=== PATIENT | female | born 1970 | race Caucasian/White ===

== ENCOUNTER → 2020-08-17 08:12 | Outpatient (BNVA) | payer SELFPAY | PROVIDERS: PCP Internal Medicine; Visit Provider Physician Assistant ==

== ENCOUNTER 2020-08-19 08:16 | Outpatient (REF) | payer OTHER, SELFPAY ==
[2020-08-19 09:00] LABS: MANUAL DIFF FLAG NO
[2020-08-19 09:05] LABS: Basophils Percent Auto 0.5 % (0-2); Eosinophils Absolute Auto 0.2 X10*3/uL (0.0-0.4); Eosinophils Percent Auto 2.7 % (0-4); Hematocrit 43.9 % (37-47); Hemoglobin 14.2 g/dl (12.0-16.0); Imm Gran Abs Auto 0.01 X10*3/uL (0.00-0.03); Imm Gran Pct Auto 0.2 % (0.0-0.4); Lymphocytes Absolute Auto 1.7 X10*3/uL (1.2-4.9); Lymphocytes Percent Auto 30.1 % (20-40); Mean Corpuscular HGB Conc 32.3 g/dl (31.0-35.0); Mean Corpuscular Hemoglobin 30.8 pg (27.0-33.0); Mean Corpuscular Volume 95.2 fL (80-98); Monocytes Absolute Auto 0.4 X10*3/uL (0.1-1.2); Monocytes Percent Auto 6.7 % (2-11); Neutrophils Absolute Auto 3.3 X10*3/uL (2.0-8.3); Neutrophils Percent Auto 59.8 % (45-73); Platelet Count 285 X10*3/uL (160-400); Red Blood Count 4.61 X10*6/uL (4.20-5.50); Red Cell Distribution Width 12.8 % (11.0-16.0); White Blood Count 5.5 X10*3/uL (4.8-10.8)
[2020-08-19 09:29] LABS: Alanine Aminotransferase 11 U/L (0-31); Alkaline Phosphatase 82 U/L (39-117); Anion Gap 11 (12-20); Aspartate Amino Transferase 15 U/L (5-31); Bilirubin Total 0.6 mg/dL (0.0-1.0); Blood Urea Nitrogen 20 mg/dL (9-16); C Reactive Protein 0.95 mg/dL (< or = 0.50); Calcium 9.4 mg/dL (8.4-10.2); Carbon Dioxide 27 mmol/L (22-29); Chloride 108 mmol/L (96-108); Cholesterol 192 mg/dL; Estimated Glomerular Filt Rate > 60; Glucose Fasting 90 mg/dL (60-99); HDL Cholesterol 54 mg/dL; Iron 87 mcg/dL (30-160); LDL Cholesterol Calculated 115 mg/dl; Percent Iron Saturation 33 % (15-50); Sodium 141 mmol/L (135-145); Total Iron Binding Capacity 266 mcg/dL (228-428); Total Protein 6.8 g/dL (6.5-8.0); Triglycerides 117 mg/dL; Unsaturated Iron Binding 179 ug/dL
[2020-08-19 09:30] LABS: Estimated Average Glucose 97 mg/dL
[2020-08-19 09:54] LABS: Ferritin 48 ng/mL (10-250); TSH reflex Free T4 0.31 mIU/mL (0.32-4.0); Vitamin D 25-OH Total 21.6 ng/mL (>30)
[2020-08-19 10:05] LABS: Folate 8.9 ng/mL (> or = 4.0); Vitamin B12 391 pg/mL (200-900)
[2020-08-19 10:31] LABS: Free T4 (Free Thyroxine) 1.19 ng/dL (0.71-1.85)
[2020-08-22 01:17] LABS: Zinc 85 mcg/dL (60-130)
[2020-08-22 08:42] LABS: Calcium (PTHI) 9.4 mg/dL (8.6-10.2); PTHI 48 pg/mL (14-64)
[2020-08-23 08:27] LABS: Vitamin B1 <6 nmol/L (8-30)
[2020-08-26 12:43] LABS: Vitamin A 41 mcg/dL (38-98)
== END 2020-08-19 08:17 | disposition home or self-care (01) ==
LOC: HO.LAB 08:16
PROVIDERS: Absent Provider Internal Medicine; PCP Internal Medicine; Visit Provider Physician Assistant
DX: E66.01 Morbid (severe) obesity due to excess calories (principal); K91.2 Postsurgical malabsorption, not elsewhere classified; Z90.3 Acquired absence of stomach [part of]; Z98.84 Bariatric surgery status
CPT/HCPCS: 36415; 80053; 80061; 82306; 82607; 82728; 82746; 83036; 83525; 83540; 83970; 84425; 84439; 84443; 84590; 84630; 85025; 86140

== ENCOUNTER → 2020-10-20 08:26 | Outpatient (BNVA) | payer OTHER, SELFPAY | PROVIDERS: PCP Internal Medicine; Visit Provider Dietitian, Registered ==

== ENCOUNTER 2020-11-05 08:03 | Outpatient (REF) | payer OTHER, SELFPAY ==
--- NOTE | ~2020-11-05 | XR_ITS ---
EXAMINATION: XR SHOULDER, LEFT CLINICAL INFORMATION: Pain in left shoulder COMPARISON: None TECHNIQUE: Three views of the left shoulder. FINDINGS: There is no fracture or dislocation. The glenohumeral joint is well aligned. The joint space is maintained. The acromioclavicular joint is intact. The visualized lung is clear. The visualized ribs are intact. XR/XR shoulder LT min 2V IMPRESSION: Normal left shoulder.
== END 2020-11-05 08:04 | disposition home or self-care (01) ==
LOC: HO.HOSX 08:03
PROVIDERS: Visit Provider Physician Assistant
DX: M25.512 Pain in left shoulder (principal)
CPT/HCPCS: 73030

== ENCOUNTER 2020-11-05 09:39 | Outpatient (REF) | payer OTHER, SELFPAY ==
[2020-11-05 11:16] LABS: Free T4 (Free Thyroxine) 1.04 ng/dL (0.71-1.85); Thyroid Stimulating Hormone 0.63 uIU/mL (0.32-4.0); Vitamin D 25-OH Total 16.4 ng/mL (>30)
== END 2020-11-05 09:40 | disposition home or self-care (01) ==
LOC: HO.LAB 09:39
PROVIDERS: PCP Family Medicine; Visit Provider Internal Medicine Endocrinology, Diabetes & Metabolism
DX: M75.42 Impingement syndrome of left shoulder (principal); E03.9 Hypothyroidism, unspecified
CPT/HCPCS: 20610; 36415; 82306; 84439; 84443; J1040

== ENCOUNTER → 2020-11-10 08:09 | Outpatient (BNVA) | payer OTHER, SELFPAY | PROVIDERS: PCP Internal Medicine; Visit Provider Internal Medicine Endocrinology, Diabetes & Metabolism ==

== ENCOUNTER → 2021-01-18 08:37 | Outpatient (BNVA) | payer OTHER, SELFPAY | PROVIDERS: PCP Internal Medicine; Visit Provider Orthopaedic Surgery ==

== ENCOUNTER 2021-02-02 10:51 | Outpatient (REF) | payer OTHER, SELFPAY ==
--- NOTE | ~2021-02-02 | US_ITS ---
EXAMINATION: US THYROID CLINICAL INFORMATION: Nontoxic single thyroid nodule. COMPARISON: Thyroid ultrasound 01/06/2017. TECHNIQUE: Linear transducer grayscale and color Doppler examination with attention to the region of the thyroid. FINDINGS: SIZE: Measurements of the thyroid lobes and nodules are given in sagittal, anteroposterior and transverse dimensions respectively. Right Thyroid Lobe: 3.4 x 1.3 x 0.8 cm, volume 1.8 mL. Previously 3.8 x 1.0 x 1.1 cm, volume 2.1 mL. Parenchyma: The gland echotexture is homogeneous. Thyroid vascularity is normal. Left Thyroid Lobe: 2.7 x 0.7 x 0.7 cm, volume 0.7 mL. Previously 2.4 x 0.9 x 1.0 cm, volume 1.1 mL. Parenchyma: The gland echotexture is homogeneous. Thyroid vascularity is normal. Isthmus: 0.3 cm in maximum AP dimension. Previously 0.3 cm. No focal thyroid nodule is seen. NODES: No lymphadenopathy is seen in the tissue surrounding the thyroid gland. US/US thyroid IMPRESSION: The thyroid gland is small. The questioned thyroid nodule in the inferior left lobe on 2017 exam is not appreciated. ACR TI-RADS RECOMMENDATION REFERENCE: Ultrasound-guided fine-needle aspiration, followup ultrasound, no further follow up. * TR1 (0 point) and TR 2 (2 points): No FNA or follow up * TR3 (3 points): FNA if more than or equal to 2.5 cm in maximum dimension, followup ultrasound in 1, 3 and 5 years if 1.5 to 2.4 cm in maximum dimension. * TR4 (4-6 points): FNA if more than or equal to 1.5 cm in maximum dimension, followup ultrasound in 1, 2, 3 and 5 years if 1 to 1.4 cm in maximum dimension. * TR5 (more than or equal to 7 points): FNA if more than or equal to 1 cm in maximum dimension, followup ultrasound every year for 5 years if 0.5 to 0.9 cm in maximum dimension. * TR3, TR4 or TR5 nodules that are below the size threshold for follow up receive no follow up.
== END 2021-02-02 10:52 | disposition home or self-care (01) ==
LOC: HO.US 10:51
PROVIDERS: Visit Provider Internal Medicine Endocrinology, Diabetes & Metabolism
DX: E04.1 Nontoxic single thyroid nodule (principal)
CPT/HCPCS: 76536

== ENCOUNTER → 2021-05-17 08:16 | Outpatient (BNVA) | payer OTHER, SELFPAY | PROVIDERS: Visit Provider Orthopaedic Surgery ==

== ENCOUNTER → 2021-06-03 07:54 | Outpatient (BNVA) | payer OTHER, SELFPAY | PROVIDERS: PCP Internal Medicine; Visit Provider Nurse Practitioner Gerontology ==

== ENCOUNTER → 2021-06-14 08:01 | Outpatient (BNVA) | payer OTHER, SELFPAY | PROVIDERS: PCP Family Medicine; Visit Provider Internal Medicine | DX: M67.919 Unspecified disorder of synovium and tendon, unspecified shoulder (principal); M75.102 Unspecified rotator cuff tear or rupture of left shoulder, not specified as traumatic; M75.42 Impingement syndrome of left shoulder | CPT/HCPCS: J3300 ==

== ENCOUNTER 2021-07-14 06:03 | Outpatient (REF) | payer OTHER, SELFPAY ==
--- NOTE | ~2021-07-14 | FL_ITS ---
EXAMINATION: XR FLUOROSCOPY WITH IMAGES CLINICAL INFORMATION: Unspecified disorder of synovium and tendon. COMPARISON: None. TECHNIQUE: Fluoroscopy performed by Dr. Lopez. Fluoroscopy time: 0.2 minutes DAP: 0.8 Gy-cm2 Images: 1 FINDINGS: Images demonstrate needle placement and contrast injection of the soft tissues over the right shoulder. FL/FL guidance in treatment room IMPRESSION: Fluoroscopy guidance for pain management procedure.
== END 2021-07-14 06:04 | disposition home or self-care (01) ==
LOC: HO.RADIR 06:03
PROVIDERS: Visit Provider Internal Medicine
DX: M67.919 Unspecified disorder of synovium and tendon, unspecified shoulder (principal); M75.102 Unspecified rotator cuff tear or rupture of left shoulder, not specified as traumatic; M75.42 Impingement syndrome of left shoulder
CPT/HCPCS: 64418; Q9967

== ENCOUNTER → 2021-08-09 08:50 | Outpatient (BNVA) | payer OTHER, SELFPAY | PROVIDERS: PCP Family Medicine; Visit Provider Internal Medicine ==

== ENCOUNTER 2021-10-27 08:50 | Day surgery (SDC) | payer OTHER, SELFPAY ==
--- NOTE | ~2021-10-27 | FL_ITS ---
EXAMINATION: XR FLUOROSCOPY WITH IMAGES CLINICAL INFORMATION: Left shoulder pain COMPARISON: July 14, 2021 TECHNIQUE: Fluoroscopy performed by Dr. Lopez. Fluoroscopy time: 0.3 minutes DAP: 0.526 Gycm2 Images: 2 FINDINGS: Needle is seen overlying the region just lateral to the coracoid process of the left shoulder FL/FL guidance in OR IMPRESSION: Fluoroscopy provided for pain management.
--- NOTE | 2021-10-27 10:31 | P.BOP_ITS ---
Brief Operative Note Date of Service: 10/27/21 Pre-op diagnosis: Left shoulder pain Post-op diagnosis: same Procedure: Temporary peripheral nerve stimulator lead placement Implants: [employer] PNS lead Surgeon: Tony Lopez MD Anesthesia: local Was an Vice President Of Product Marketing used for this Procedure?: No Estimated blood loss (mL): 1 Pathology: none sent Disposition: same day (home)
--- NOTE | 2021-10-27 10:31 | MHC.SHP ---
Pre-Procedural Eval Section A Date of Service: 10/27/21 The patient is an INPATIENT: No Changes since office visit: Yes Patient answered all questions The History & Physical has been completed within 30 days and I have reviewed it.: No Section B Chief Complaint: rotator cuff pain Allergies: Allergies Allergy/AdvReac Type Severity Reaction Status Date / Time No Known Allergies Allergy Verified 07/14/21 07:36 [No Known Allergies*] Plan Diagnosis/Plan: Unchanged I have reviewed the history and physical and performed a pertinent physical examination on my patient. No changes have occurred unless specified.
--- NOTE | 2021-10-27 10:31 | W.PM.OPN ---
Operative Note Operative Note Date of Service: 10/27/21 Narrative: Peripheral Nerve Stimulation Temporary Lead Placement, Fluoroscopy-Guided, Suprascapular Nerve, Left ? After the risks, benefits and alternatives were discussed with the patient and informed consent was obtained, patient was placed in the sitting position and padded to foster comfort. Appropriate skin and bony landmarks were identified using fluoroscopy, including the left suprascapular notch. The skin overlying the needle entry site was prepped and draped in sterile fashion. After identifying and marking the intended target along the course of the suprascapular nerve, the skin around the planned entry point and the subcutaneous tissues were injected with local anesthetic. An introducer needle and stimulating probe were assembled, inserted and advanced along the intended course of the suprascapular nerve, taking care to maintain the proper depth of insertion as the introducer was advanced under fluoroscopy guidance. Bony contact was achieved with the scapula and maintained throughout. The introducer needle was delivered to a location in proximity to the nerve. Multiple stimulation parameters were used to deliver stimulation to the suprascapular nerve in concert with stimulating at multiple positions around the nerve. Nerve target acquisition was confirmed noting generation of sensory and mild motor effects (paresthesia, muscle tension, etc) in the shoulder and proximal arm; corresponding to the distribution of the suprascapular nerve. Various electrical parameter combinations were tested, and the lead location was adjusted (physically relocated under image guidance) until the patient indicated shoulder paresthesia and tension overlapping the distribution of the patient?s typical region of pain. The stimulating probe was removed from the introducer and a percutaneous lead was guided through the needle and delivered to a location in similar proximity to the nerve. Final location was verified with electrical stimulation and documented. The introducer needle was removed, and the exposed end of the percutaneous lead was attached to an external stimulator unit. Various electrical parameter combinations were again tested until the patient indicated paresthesia and muscle tension overlapping the distribution of the patient?s typical region of pain. After confirming that lead impedance was in the normal range, the external unit was detached, the needle was removed, and the lead was anchored at the skin. The needle entry site was occluded with dermabond. The lead was threaded into the connector block and electrical continuity and desired patient response was confirmed. The connector block was attached to the external stimulator unit. The site was covered with a sterile occlusive dressing.? A final image was taken to document final placement. The patient was observed for stability of vital signs and comfort.
== END 2021-10-27 11:15 | disposition home or self-care (01) ==
PROVIDERS: PCP Family Medicine; Visit Provider Internal Medicine
PROC: (CPT 64555; principal; 2021-10-27 10:00)
DX: M25.512 Pain in left shoulder (principal)
CPT/HCPCS: 64555; C1778

== ENCOUNTER → 2021-11-05 09:22 | Outpatient (BNVA) | payer MEDICAID, SELFPAY | PROVIDERS: PCP Family Medicine; Visit Provider Internal Medicine | DX: M25.512 Pain in left shoulder (principal) | CPT/HCPCS: 99212 ==

== ENCOUNTER 2021-12-24 06:08 | Outpatient (REF) | payer MEDICAID, SELFPAY | END 2021-12-24 06:09 | disposition home or self-care (01) | LOC: HO.RADIR 06:08 | PROVIDERS: Visit Provider Internal Medicine | DX: M25.512 Pain in left shoulder (principal) | CPT/HCPCS: 99212 ==

== ENCOUNTER 2022-02-08 09:16 | Outpatient (REF) | payer MEDICAID, SELFPAY ==
[2022-02-08 11:06] LABS: Thyroid Stimulating Hormone 1.13 uIU/mL (0.32-4.0); Vitamin D 25-OH Total 16.2 ng/mL (>30)
== END 2022-02-08 09:17 | disposition home or self-care (01) ==
LOC: HO.LAB 09:16
PROVIDERS: Internal Medicine Endocrinology, Diabetes & Metabolism; PCP Family Medicine; Visit Provider Nurse Practitioner Gerontology
DX: E55.9 Vitamin D deficiency, unspecified (principal); E03.9 Hypothyroidism, unspecified
CPT/HCPCS: 36415; 82306; 84439; 84443

== ENCOUNTER → 2022-02-11 07:38 | Outpatient (BNVA) | payer MEDICAID, SELFPAY | PROVIDERS: PCP Family Medicine; Visit Provider Internal Medicine | DX: N92.6 Irregular menstruation, unspecified (principal); E03.9 Hypothyroidism, unspecified; E55.9 Vitamin D deficiency, unspecified; E66.9 Obesity, unspecified; Z68.39 Body mass index [BMI] 39.0-39.9, adult; Z79.899 Other long term (current) drug therapy | CPT/HCPCS: 99212 ==

== ENCOUNTER 2022-03-18 06:50 | Outpatient (REF) | payer MEDICAID, SELFPAY ==
[2022-03-18 07:28] LABS: Alanine Aminotransferase 15 U/L (0-31); Albumin Level 3.8 g/dL (3.5-5.0); Alkaline Phosphatase 72 U/L (39-117); Anion Gap 14 (12-20); Aspartate Amino Transferase 19 U/L (5-31); Bilirubin Total 0.5 mg/dL (0.0-1.0); Blood Urea Nitrogen 21 mg/dL (9-16); Calcium 9.4 mg/dL (8.4-10.2); Carbon Dioxide 29 mmol/L (22-29); Chloride 104 mmol/L (96-108); Cholesterol 202 mg/dL; Estimated Glomerular Filt Rate > 60; Glucose Random 98 mg/dL (60-115); HDL Cholesterol 57 mg/dL; LDL Cholesterol Calculated 115 mg/dl; Potassium 4.5 mmol/L (3.3-5.1); Sodium 142 mmol/L (135-145); Total Protein 6.7 g/dL (6.5-8.0); Triglycerides 154 mg/dL
[2022-03-18 07:34] LABS: HCG Quantitative 7 mIU/mL
[2022-03-18 07:38] LABS: Glucose Fasting 94 mg/dL (60-99)
[2022-03-18 08:43] LABS: Estimated Average Glucose 100 mg/dL; Hemoglobin A1c % 5.1 %
[2022-03-18 09:08] LABS: Glucose 1 Hour 121 mg/dL
[2022-03-18 10:08] LABS: Cortisol Random 12.1 ug/dL
[2022-03-18 10:28] LABS: Glucose 2 Hour 43 mg/dL
[2022-03-21 04:02] LABS: LDL Cholesterol Direct 111 mg/dL (<100)
[2022-03-21 04:52] LABS: DHEA Sulfate 19 mcg/dL (15-205)
[2022-03-21 11:47] LABS: Follicle Stimulating Hormone 95.5 mIU/mL; Prolactin 6.4 ng/mL
[2022-03-21 17:26] LABS: Sex Hormone Binding Globulin 47 nmol/L (17-124)
[2022-03-22 15:22] LABS: Adrenocorticotropic Hormone 35 pg/mL (6-50)
[2022-03-24 20:27] LABS: Testosterone, Free 0.7 pg/mL (0.1-6.4); Testosterone, Total 6 ng/dL (2-45)
[2022-03-30 17:41] LABS: Androstenedione 30 ng/dL
[2022-04-01 22:52] LABS: Estradiol Free 0.06 pg/mL; Estradiol, Ultrasensitive 4 pg/mL
== END 2022-03-18 06:51 | disposition home or self-care (01) ==
LOC: HO.LAB 06:50
PROVIDERS: PCP Family Medicine; Visit Provider Internal Medicine
DX: N92.6 Irregular menstruation, unspecified (principal)
CPT/HCPCS: 36415; 80053; 80061; 82024; 82157; 82533; 82627; 82670; 82681; 83001; 83002; 83036; 83498; 83721; 84146; 84270; 84402; 84403; 84702

== ENCOUNTER → 2022-04-07 08:33 | Outpatient (BNVA) | payer MEDICAID, SELFPAY | PROVIDERS: PCP Family Medicine; Visit Provider Dietitian, Registered | DX: E66.9 Obesity, unspecified (principal); Z68.39 Body mass index [BMI] 39.0-39.9, adult; Z98.84 Bariatric surgery status; Z71.3 Dietary counseling and surveillance | CPT/HCPCS: 97802 ==

== ENCOUNTER 2022-06-25 08:27 | Emergency (ER) | payer MEDICAID, SELFPAY ==
--- NOTE | ~2022-06-25 | US_ITS ---
EXAMINATION: US VENOUS ULTRASOUND WITH DOPPLER LOWER EXTREMITY, RIGHT CLINICAL INFORMATION: Right calf pain COMPARISON: None TECHNIQUE: Ultrasound of the deep veins is performed from the hip to the calf with compression sonography and color and pulse Doppler assessment. Spectral analysis with color-flow imaging is performed. FINDINGS: There is normal venous compression and respiratory variation and augmented flow. The visualized common femoral vein, superficial femoral vein, profunda femoral vein, popliteal vein, and the trifurcation region shows no evidence of deep venous thrombosis. There is no significant popliteal fossa cyst. If the patient's symptoms persist, followup ultrasound in 5 days 7 days might be of value to exclude proximal propagation from a non-visualized calf vein. US/US venous duplex LE RT IMPRESSION: No DVT demonstrated in the right lower extremity.
[2022-06-25 08:28] VITALS: BP 119/72; PULSE 99; RESP 18; TEMP 37.2; O2SAT 99; BMI 40.7
--- NOTE | 2022-06-25 08:40 | ED_ITS ---
HPI - General Adult General Chief complaint: Extremity Injury, Lower Stated complaint: r knee and leg pain Time Seen by Provider: 06/25/22 08:40 Source: patient Mode of arrival: ambulatory Limitations: no limitations History of Present Illness HPI narrative: Pt is a 52 yo assigned female at w/ hx of hypothyroidism presenting w/ a 5 day hx of left calf pain. She reports that the pain began spontaneously w/o any known inciting events. She states that the pain feels sharp and radiates up about half way up her posterior thigh. She states that putting pressure on the leg and ambulation make the pain worse. She reports trying Aleve, Bengay, and Voltaren gel w/o any provided relief of symptoms. She denies any associated fevers, chills, skin color changes, swelling, or changes in temperature to the affected leg. She denies SOB or chest pain. She denies any recent hx of injury or trauma to the leg. She denies hx of blood clots, estrogen therapy, or recent travel of any kind. She reports that she was diagnosed w/ COVID-19 approx 2 weeks ago. Onset (ago): day(s) (5) Location: lower extremity (right) Radiation: other (starts in calf, radiates half way up posterior thigh) Severity: mild Severity scale (1-10): 2 Quality: dull Pain Consistency: constant Relieving factors: none Exacerbating factors: movement Associated symptoms: denies other symptoms Treatments prior to arrival: none Related Data Previous Rx's Medication Instructions Recorded thiamine HCl (vitamin B1) 100 mg 100 mg PO DAILY 30 days #30 tabs 08/28/20 tablet levothyroxine 100 mcg tablet 100 mcg PO DAILY 90 days #90 tabs 06/03/21 cholecalciferol (vitamin D3) 125 125 mcg PO DAILY 90 days #90 caps 02/11/22 mcg (5,000 unit) capsule acarbose 25 mg tablet 25 mg PO TID 30 days #90 tabs 03/21/22 cyclobenzaprine 5 mg tablet 5 mg PO TID PRN leg pain 7 days 06/25/22 #21 tabs Allergies Allergy/AdvReac Type Severity Reaction Status Date / Time No Known Allergies Allergy Verified 04/19/22 08:30 [No Known Allergies*] Review of Systems Constitutional: Constitutional: Reports no additional constitutional complaints, Denies chills, Denies fever(s) and Denies night sweats Eyes: Eyes: Reports no additional eye complaints, Denies blurry vision, Denies change in vision, Denies diplopia, Denies eye discharge, Denies loss of vision and Denies eye pain ENT: Denies dizziness Cardiovascular: Cardiovascular: Reports no additional cardiovascular complaints, Denies chest pain, Denies lightheadedness, Denies Loss of Consciousness and Denies dyspnea Respiratory: Respiratory: Reports no additional respiratory complaints and Denies dyspnea Gastrointestinal: Gastrointestinal: Reports no additional gastrointestinal complaints, Denies abdominal pain, Denies melena, Denies hematochezia, Denies change in bowel habits and Denies change in stool character Genitourinary: Genitourinary: Denies hematuria, Denies urinary frequency, Denies dysuria, Denies urinary incontinence, Denies urinary hesitancy and Denies urinary urgency Musculoskeletal: Musculoskeletal: Reports no additional musculoskeletal complaints, Denies numbness and Denies tingling Comments: right lower leg pain Neurologic: Denies dizziness, Denies loss of vision, Denies numbness and Denies tingling Psychiatric: Psychiatric: Reports no additional psychiatric complaints Endocrine: Endocrine: Reports no additional endocrine complaints Hematologic/Lymphatic: Hematologic/Lymphatic: Reports no additional hematologic/lymphatic complaints Allergic/Immunologic: Allergic/Immunologic: Reports no additional allergic/immunologic complaints PMF Past Medical History Attestation statement: The following information was validated with the patient. Source: old records reviewed Medical History Anxiety Hypothyroidism Hypothyroidism Intestinal malabsorption following gastrectomy Irregular menses Obesity (BMI 30-39.9) Post menopausal syndrome Reactive hypoglycemia Vitamin D deficiency Surgical History Hx of cholecystectomy Hx of vaginal surgery S/P laparoscopic sleeve gastrectomy Status post arthroscopy of left knee Family History Family History Father Heart disease CVD (cardiovascular disease) Mother No problems noted. Brother Diabetes mellitus Brother Depressed Sister Pelvic cancer Thromboangiitis Bipolar 1 disorder Panic attack Heart problem Social History Social History Household Members: None Alcohol intake: current Alcohol intake frequency: holidays/special occasions only Patient Tobacco Use Status: Never used Tobacco Advance Directives: No Advance Directives Information Provided: No Current occupation: lft handed Physical Exam ED Vital Signs: Vital Signs - 24 hr 06/25/22 08:28 Temperature 99 F Pulse Rate 99 Respiratory Rate 18 Blood Pressure 119/72 Pulse Oximetry 99 Oxygen Delivery Method Room Air BMI result Body Mass Index 40.7 Const General: cooperative, no acute distress, alert and awake Nutritional Appearance: well nourished Orientation/consciousness: patient oriented x3 Limitations: no limitations HENMT Head: Yes normal to inspection and Yes atraumatic Ears: hearing grossly normal bilaterally and external ears normal General nose exam: Normal external nose present, no nasal discharge noted and no epistaxis Face and sinus: Yes normal facial exam, No abrasion and No laceration Mouth: Normal oral and palatal mucosa present, no drooling and no muffled voice Eyes General: appearance normal, both eyes and all related structures Periorbital: periorbital findings normal Eyelids: Yes eyelids normal Conjunctivae: conjunctivae normal Pupils: Equal, round and reactive pupils present EOM: EOMs intact bilaterally Neck Neck: Yes normal visual inspection, Yes full ROM and Yes no lymphadenopathy Chest Chest palpation & inspection: normal inspection of the chest Resp Effort & Inspection: normal respiratory effort and able to speak in complete sentences Auscultation: clear to auscultation bilaterally Cardio Rate: regular rate Rhythm: regular rhythm GI Inspection: Yes normal to inspection Neuro General: patient oriented x3 and moves all extremities Cranial nerves: Yes Equal, round and reactive pupils present Cognition (Neuro): normal cognition Motor exam (neuro): 5/5 motor strength present throughout Sensory Exam: Normal double simultaneous stimulation for sensation Coordination: [id number] test normal Extrem General: Yes normal to inspection, Yes full ROM and Yes capillary refill normal Psych Appearance: grossly normal Mental Status: mental status grossly normal Affect: normal affect Attitude: cooperative Thought process: Normal thought process present Thought content: Normal thought content present Insight: Good insight present (Psych) Medical Decision Making MDM Narrative Medical decision making narrative: Patient is a 52 year old assigned female at with a history of a recent COVID-19 infection presenting to the emergency department today with right lower leg pain. Patient's physical exam was unremarkable. Patient's right lower leg US showed no acute process. I explained my physical exam findings as well as all test results to the patient. I answered all questions asked by the patient. I stressed the importance of the patient taking her medication as prescribed. I stressed the importance of the patient following up with her primary care provider and her orthopedic provider as scheduled next week. I stressed the importance of the patient returning to the emergency department immediately if her symptoms were to worsen or if she were to develop any dizziness, shortness of breath, difficulty breathing, chest pain, blurry vision, loss of vision, nausea, vomiting, abdominal pain, fever, chills, back pain, or any other complaints. Patient verbalized agreement and understanding with this treatment plan and discharge. Imaging Data Venous US: Attestation: I personally reviewed and interpreted this imaging study as follows: My impression: No acute process. Radiologist's impression: EXAMINATION:? US VENOUS ULTRASOUND WITH DOPPLER LOWER EXTREMITY, RIGHT CLINICAL INFORMATION:? Right calf pain COMPARISON:? None TECHNIQUE: Ultrasound of the deep veins is performed from the hip to the calf with compression sonography and color and pulse Doppler assessment. Spectral analysis with color-flow imaging is performed. FINDINGS: There is normal venous compression and respiratory variation and augmented flow. The visualized common femoral vein, superficial femoral vein, profunda femoral vein, popliteal vein, and the trifurcation region shows no evidence of deep venous thrombosis. ? There is no significant popliteal fossa cyst. If the patient's symptoms persist, followup ultrasound in 5 days 7 days might be of value to exclude proximal propagation from a non-visualized calf vein. US/US venous duplex LE RT IMPRESSION: No DVT demonstrated in the right lower extremity. ? Dictated By: George Vaughan MD Signed By: Electronically signed by George Vaughan MD 06/25/22 0954 Discharge Plan Discharge Clinical Impression: Leg pain Patient Disposition: Home, Self-Care Instructions: Leg Pain (ED) Additional Instructions: Follow up with your primary care provider and your orthopedic provider as scheduled. Return to the emergency department immediately if your symptoms worsen or if you develop any dizziness, shortness of breath, difficulty breathing, chest pain, blurry vision, loss of vision, nausea, vomiting, abdominal pain, fever, chills, back pain, or any other complaints. Prescriptions: New cyclobenzaprine 5 mg tablet 5 mg PO TID PRN (Reason: leg pain) 7 Days Qty: 21 0RF No Action thiamine HCl (vitamin B1) 100 mg tablet 100 mg PO DAILY 30 Days Qty: 30 5RF cholecalciferol (vitamin D3) 125 mcg (5,000 unit) capsule 125 mcg PO DAILY 90 Days Qty: 90 11RF acarbose 25 mg tablet 25 mg PO TID 30 Days Qty: 90 6RF levothyroxine 100 mcg tablet 100 mcg PO DAILY 90 Days Qty: 90 11RF [place]: [facility] [place] Group] (Follow up with your orthopedic provider as scheduled. ) Saadia Masnfield MD [Primary Care Provider] - Stand Alone Forms: Work/School Release Print Language: Vietnamese
--- OUTSIDE RECORDS SUMMARY | 2022-06-25 09:02 | XMS_ITS | Continuity of Care Document ---
:1970 Author Organization [facility] Adult Address [address] [place] [address]- Care Team Providers Name Role Phone Ade Rouse MD Primary Care Physician Encounter [facility] [place] Date(s): 11/20/19 - 12/20/19 [facility] [address] [place] [id number] [facility] Attending Physician: Sami Del Rosario Admitting Physician: AdmtrSami Referring Physician: Admtr, ArCasie Allergies, Adverse Reactions, Alerts Substance Reaction Severity Status NKA Active Medications Colace sodium 100 mg oral capsule 100 mg, 1, capsule, By Mouth, 2 times a day, PRN, # 20 capsule, Refills 0, Tot. Refills 0, Maintenance, for constipation, 05/15/17 8:53:00, Print Requisition Start Date: 05/15/17 Status: OrderedDaily Multi 1 tablet, By Mouth, Daily, 0 Refills, Maintenance, 01/30/17 11:14:36 Start Date: 01/30/17 Status: Orderedfenofibrate 200 mg oral capsule 1 capsule = 200 mg, By Mouth, Daily, 0 Refills, Maintenance, 01/30/17 11:14:30 Start Date: 01/30/17 Status: OrderedSynthroid 0.1 mg oral tablet 1 tablet = 100 mcg, By Mouth, Daily, 0 Refills, Maintenance, 01/30/17 11:14:11 Start Date: 01/30/17 Status: Ordered Social History Social History Type Response Smoking Status Never smoker entered on: 01/30/17 Sex
--- OUTSIDE RECORDS SUMMARY | 2022-06-25 09:02 | XMS_ITS | Continuity of Care Document ---
:1970 Author Organization [facility] Address [address] [place] [address]- Care Team Providers Name Role Phone Nasim STORM, Ade Pineda Primary Care Physician Encounter [facility] [place] Date(s): 10/08/19 - 12/20/19 [facility] [address] [place] [address]- [facility] Attending Physician: Kellee Gaona MD Allergies, Adverse Reactions, Alerts Substance Reaction Severity [...]
[2022-06-25 10:32] VITALS: BP 95/54; PULSE 64; RESP 116; O2SAT 95
== END 2022-06-25 10:38 | disposition home or self-care (01) ==
PROVIDERS: Emergency Provider Emergency Medicine; PCP Family Medicine
DX: M79.605 Pain in left leg (principal); E66.9 Obesity, unspecified; Z68.41 Body mass index [BMI] 40.0-44.9, adult
CPT/HCPCS: 93971; 99283; 99284

== ENCOUNTER 2022-07-04 07:50 | Outpatient (REF) | payer MEDICAID, SELFPAY ==
--- NOTE | ~2022-07-04 | XR_ITS ---
EXAMINATION: AP BILATERAL KNEE STANDING. RIGHT KNEE. LEFT KNEE. CLINICAL INFORMATION: Pain bilateral knee. COMPARISON: None TECHNIQUE: AP bilateral knee standing. 2 views each knee. FINDINGS: AP bilateral knee: There is moderate reduction in medial compartment joint space both knees and mild reduction the lateral compartment joint space both knees. There is mild periapical spurring the medial and lateral compartment left knee. No bony erosive changes or loose body seen. Right knee: There is mild loss of patellofemoral compartment joint space with superior patellar spurring. No joint effusion or loose bodies. Left knee: There is moderate periarticular spurring left knee with superior and inferior patellar spurring. No abnormal joint effusion seen. No bony erosive changes. XR/XR knee LT 2V IMPRESSION: Degenerative arthritic changes in tricompartment of both knees with periarticular spurring. No visible acute fracture, dislocation or subluxation seen. There is no joint effusion seen in either knee.
--- NOTE | ~2022-07-04 | XR_ITS ---
EXAMINATION: AP BILATERAL KNEE STANDING. RIGHT KNEE. LEFT KNEE. CLINICAL INFORMATION: Pain bilateral knee. COMPARISON: None TECHNIQUE: AP bilateral knee standing. 2 views each knee. FINDINGS: AP bilateral knee: There is moderate reduction in medial compartment joint space both knees and mild reduction the lateral compartment joint space both knees. There is mild periapical spurring the medial and lateral compartment left knee. No bony erosive changes or loose body seen. Right knee: There is mild loss of patellofemoral compartment joint space with superior patellar spurring. No joint effusion or loose bodies. Left knee: There is moderate periarticular spurring left knee with superior and inferior patellar spurring. No abnormal joint effusion seen. No bony erosive changes. XR/XR knee RT 2V IMPRESSION: Degenerative arthritic changes in tricompartment of both knees with periarticular spurring. No visible acute fracture, dislocation or subluxation seen. There is no joint effusion seen in either knee.
--- NOTE | ~2022-07-04 | XR_ITS ---
EXAMINATION: AP BILATERAL KNEE STANDING. RIGHT KNEE. LEFT KNEE. CLINICAL INFORMATION: Pain bilateral knee. COMPARISON: None TECHNIQUE: AP bilateral knee standing. 2 views each knee. FINDINGS: AP bilateral knee: There is moderate reduction in medial compartment joint space both knees and mild reduction the lateral compartment joint space both knees. There is mild periapical spurring the medial and lateral compartment left knee. No bony erosive changes or loose body seen. Right knee: There is mild loss of patellofemoral compartment joint space with superior patellar spurring. No joint effusion or loose bodies. Left knee: There is moderate periarticular spurring left knee with superior and inferior patellar spurring. No abnormal joint effusion seen. No bony erosive changes. XR/XR knee standing BI IMPRESSION: Degenerative arthritic changes in tricompartment of both knees with periarticular spurring. No visible acute fracture, dislocation or subluxation seen. There is no joint effusion seen in either knee.
== END 2022-07-04 07:51 | disposition home or self-care (01) ==
LOC: HO.HOSX 07:50
PROVIDERS: Visit Provider Orthopaedic Surgery
DX: M17.0 Bilateral primary osteoarthritis of knee (principal)
CPT/HCPCS: 20610; 73560; 73565; 99212; J1100

== ENCOUNTER 2022-07-29 17:36 | Outpatient (REF) | payer MEDICAID, SELFPAY ==
--- NOTE | ~2022-07-29 | MR_ITS ---
EXAMINATION: MR KNEE WITHOUT CONTRAST, RIGHT CLINICAL INFORMATION: Effusion COMPARISON: X-ray 07/04/2022 TECHNIQUE: MRI of the knee without contrast was performed using routine sequences on a high-field scanner. FINDINGS: MENISCI: Medial Meniscus: Irregular tear of the posterior root and the central posterior horn involving a segment approximately 1.1 cm transverse. Partial extrusion of the body. Lateral Meniscus: Intact LIGAMENTS: Cruciate: Intact Collateral: Intact EXTENSOR MECHANISM: Intact ARTICULAR CARTILAGE/BONE: Patellofemoral Compartment: Extensive nonuniform cartilage loss, including high-grade/full-thickness cartilage loss in the mid/inferior patella, high-grade cartilage loss in the superior/lateral trochlear. Medial Compartment: Marginal osteophytes. Joint space loss. Cartilage thinning and irregularity in the weightbearing compartment. Subchondral tibial edema. Lateral Compartment: Marginal osteophytes. Cartilage heterogeneity in the central weightbearing compartment. JOINT FLUID AND BURSAE: Small effusion. 10 x 6 mm posterior loose body.. Moderate Mendez's cyst. MR/MR knee RT wo con IMPRESSION: 1. Tear of the posterior root and central posterior horn of the medial meniscus. 2. Moderate to severe patellofemoral, moderate medial, mild lateral compartment arthritis. 3. Small effusion. 10 x 6 mm posterior loose body. Moderate Mendez's cyst.
== END 2022-07-29 17:37 | disposition home or self-care (01) ==
LOC: HO.MRI 17:36
PROVIDERS: Visit Provider Orthopaedic Surgery
DX: M25.461 Effusion, right knee (principal)
CPT/HCPCS: 73721

== ENCOUNTER → 2022-08-22 08:47 | Outpatient (BNVA) | payer MEDICAID, SELFPAY | PROVIDERS: PCP Family Medicine; Visit Provider Internal Medicine | DX: M17.0 Bilateral primary osteoarthritis of knee (principal) | CPT/HCPCS: 99212 ==

== ENCOUNTER 2022-09-14 11:00 | Outpatient (RCR) | payer MEDICAID, SELFPAY ==
--- NOTE | 2022-08-22 12:11 | MHC.PT.EP ---
[facility] [place] Office [place] Office [place] Office [address] Cody Sebastian [address] [phone] F: [phone] F: [phone] F: [phone] F: [phone] Physical Therapy Plan of Care Date of Evaluation: Date of Surgery: Diagnosis: BILATERL KNEE OA Assessment: 52 YO FEMALE REF TO PT W PROGRESSIVE Rt KNEE PAIN W ONSET 06/19/22. RECENT MRI ON 08/04/22 REVEALED: IMPRESSION: 1. Tear of the posterior root and central posterior horn of the medial meniscus. 2. Moderate to severe patellofemoral, moderate medial, mild lateral compartment arthritis. 3. Small effusion. 10 x 6 mm posterior loose body. Moderate Mendez's cyst. 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 OBJECTIVE FINDINGS INCLUDE: LIMITED AROM Rt KNEE AND HIP, (+) SOFT TISSUE IRRITABILITY Rt PERIPATELLAR AREA W LATERAL RETINACULAR TIGHTNESS, (+) GENU VALGUS COLLAPSE, AND GENERAL LUMBOPELVIC/ PROX LE STRENGTH DEFICITS. FUNCTIONALLY, Pt HAS DIFFIC GETTING IN/OUT OF HER CAR, W STAIR NAVIGATION, PROLONGED STANDING, SQUATTING, AND DONNING HER SOCK. Pt WOULD BENEFIT FROM A TRIAL OF PT TO DEV A PROGRESSIVE HEP, EASE SOFT TISSUE TENSION AND MUSCULAR IMBALANCE, AND IMPROVE HER OVERALL FUNCT MOB BETHANIE- SHE IS WAITING AUTH FOR PAIN MGMT GEL INJECTIONS FOR HER KNEE. Frequency and Duration: The patient will be seen 2 x WK x 5 WKS Short Term Goals: *DECR Rt KNEE PAIN TO 2-3/10 *DEV A HEP *IMPROVE CALF AND PSOAS MM FLEXIBILITY Tooth Cutter Goals: *Pt DEMON EFFICIENT GAIT MECHANICS AND SIMUL ADLS *Pt INDEP W PROGRESSIVE HEP *IMPROVE ADL/ WORK BETHANIE- STAIR MGMT, EVIDENT W IMPROVED LEFI SCORE (AT EVAL 24/80) *BRYCE LEs STRENGTH IMPROVED BY 1/2 TO 1 GRADE Treatment Plan: Modalities to reduce pain, spasms and effusion. Manual therapy to restore motion and function. Therapeutic exercise to improve strength and flexibility. Neuromuscular re-education for posture and balance. Therapeutic activities to return to functional activities of daily living. Electronically signed by: CLAUDETTE PONCE PT Please sign and return to therapist. Thank you for your referral.
--- NOTE | 2022-10-21 07:11 | MHC.PT.DC ---
[facility] [place] Office [place] Office [place] Office [address] Cody Sebastian [address] [phone] F: [phone] F: [phone] F: [phone] F: [phone] Physical Therapy Discharge Report Diagnosis: BILATERL KNEE OA Date of Surgery: Date of Evaluation: 08/22/22 Date of Discharge: 10/21/22 Treatments to Date: 5 Cancellations to Date: 2 No Shows to Date: 0 Discharge Status: Improved Function Independent with HEP Patient Elected to Stop Discharge Summary: Pt was motivated for PT and she displayed improved functional mob and more efficient gait mechanics. The Pt has residual eccentric weakness right quad influencing function on stairs espec - She is indep w her HEP - a formal reassessment was not perf as Pt canc her last 2 sched PT appts- she noted her insurance approved her knee injections. Pt is d/c'd this date w her HEP. Electronically signed by: CLAUDETTE PONCEPT Please sign and return to therapist. Thank you for your referral.
== END 2022-10-21 07:12 | disposition home or self-care (01) ==
LOC: HO.PT 11:00
PROVIDERS: PCP Family Medicine; Visit Provider Orthopaedic Surgery
DX: M17.0 Bilateral primary osteoarthritis of knee (principal)
CPT/HCPCS: 97110; 97140; 97162; 97530

== ENCOUNTER → 2022-09-26 12:58 | Outpatient (BNVA) | payer MEDICAID, SELFPAY | PROVIDERS: PCP Family Medicine; Visit Provider Internal Medicine | DX: M17.0 Bilateral primary osteoarthritis of knee (principal) | CPT/HCPCS: 20611; J7318 ==

== ENCOUNTER 2022-11-22 08:51 | Outpatient (REF) | payer MEDICAID, SELFPAY ==
--- NOTE | ~2022-11-22 | CT_ITS ---
EXAMINATION: CT ABDOMEN AND PELVIS WITH CONTRAST CLINICAL INFORMATION: Abdominal pain COMPARISON: Previous abdominal ultrasound most recent June 2019 TECHNIQUE: Multidetector volumetric images were obtained from the superior aspect of the liver through the pubic symphysis following administration 85 mL of Omnipaque 350 intravenous contrast. Sagittal and coronal reformatted images were obtained on the technologist's workstation. Oral contrast: Yes This CT examination was performed using dose optimization techniques as appropriate, variously including the following: *Automated exposure control *Adjustment of mA and/or kV according to patient size (this includes techniques or standardized protocols for targeted exams where dose is matched to indication/reason for exam; i.e. extremities or head) *Use of iterative reconstruction technique DLP: 786 mGy-cm FINDINGS: LUNG BASES: 5 mm right lower lobe nodule axial image 2 series 8. 4 mm left lower lobe nodule axial image 10 series 8. There may be small bilateral hilar and mediastinal lymph nodes. LIVER, GALLBLADDER, AND BILIARY TREE: The liver is normal in size, shape, and attenuation. There is a 1 cm low-attenuation lesion high in the posterior segment of the right lobe of the liver axial image 16 series 3. This is difficult to characterize due to small size. Hounsfield units measure 17-25 uncertain whether this represents a complex cyst or solid lesion. The gallbladder is been removed. There is no biliary duct dilatation. PANCREAS: Unremarkable. SPLEEN: Unremarkable. ADRENAL GLANDS: Unremarkable. KIDNEYS AND URETERS: The kidneys are normal in size, shape, and attenuation. No hydronephrosis, hydroureter, or calculi seen. No perinephric stranding. BLADDER: Unremarkable. GASTROINTESTINAL TRACT: Stool throughout the colon questionable for mild constipation. The small and large bowel are unremarkable. The appendix is unremarkable. Postsurgical changes from gastric sleeve. ABDOMINAL WALL: No significant hernia is appreciated. LYMPH NODES: Normal. VASCULAR: Unremarkable. PELVIC VISCERA: Unremarkable. OSSEOUS STRUCTURES: Degenerative changes of the spine and hip joints.. CT/CT abdomen pelvis w IV con IMPRESSION: Question mild constipation. Postsurgical changes from gastric bypass. 1 cm liver lesion high in the posterior segment of the right lobe of the liver. This is difficult to characterize due to small size. This is not seen on prior ultrasound. This could be further evaluated with liver MRI if clinically indicated. Small pulmonary nodules. Follow-up chest CT recommended. Fleischner guidelines were followed.
[2022-11-22] MEDS: iohexoL 350 MG/ML 100 ML INFUS..BTL IV (11:26)
[2022-11-22] MEDS: Barium Sulfate Oral (Mocha) 450 ML ORAL.SUSP 900 ML PO (11:27)
[2022-11-22 12:48] LABS: Creatinine POC 0.6 mg/dL (0.5-1.4); GFR POC > 60
== END 2022-11-22 08:52 | disposition home or self-care (01) ==
LOC: HO.CT 08:51
PROVIDERS: PCP Family Medicine; Visit Provider Family Medicine
DX: R10.9 Unspecified abdominal pain (principal)
CPT/HCPCS: 74177; 82565; Q9967

== ENCOUNTER 2022-12-19 07:14 | Outpatient (REF) | payer OTHER, MEDICAID, SELFPAY ==
--- NOTE | ~2022-12-19 | US_ITS ---
EXAMINATION: US ABDOMEN COMPLETE CLINICAL INFORMATION: Liver cyst.. COMPARISON: CT abdomen and pelvis with contrast 11/22/2022. TECHNIQUE: Real-time imaging of the abdominal viscera. FINDINGS: PANCREAS: Normal. ABDOMINAL AORTA: The proximal, mid, and distal segments are normal in caliber. INFERIOR VENA CAVA: Visualized portions are normal. LIVER: The liver is normal in size. The liver contour is normal. Parenchymal echogenicity is normal. No focal hepatic lesion. There is no intrahepatic biliary duct dilatation seen. GALLBLADDER: Surgically absent. COMMON BILE DUCT: Normal in caliber measuring 0.4 cm in diameter. RIGHT KIDNEY: Normal. No hydronephrosis. No renal calculi or focal parenchymal lesions. The kidney measures 11.1 cm in maximum dimension. LEFT KIDNEY: Normal. No hydronephrosis. No renal calculi or focal parenchymal lesions. The kidney measures 10.8 cm in maximum dimension. SPLEEN: Normal. The spleen measures 9.5 cm in maximum dimension. FREE FLUID: None. US/US abdomen complete IMPRESSION: Previously seen liver lesion was not identified sonographically, and therefore not assessed. MR could be obtained for further evaluation.
== END 2022-12-19 07:15 | disposition home or self-care (01) ==
LOC: HO.US 07:14
PROVIDERS: PCP Family Medicine; Visit Provider Family Medicine
DX: K76.89 Other specified diseases of liver (principal)
CPT/HCPCS: 76700

== ENCOUNTER 2023-05-27 08:38 | Emergency (ER) | payer MEDICAID, SELFPAY ==
[2023-05-27 08:43] VITALS: BP 128/68; PULSE 87; RESP 16; TEMP 36.6; O2SAT 100; BMI 38.0
--- NOTE | 2023-05-27 09:02 | ED.BURNSMOKE ---
HPI - Burn/Smoke Inhalation General Chief complaint: Burn/Smoke Inhalation Stated complaint: facial burn Time Seen by Provider: 05/27/23 08:49 Source: patient and interpreter for the deaf Mode of arrival: ambulatory Limitations: language barrier History of Present Illness HPI Narrative: 53-year-old female here with complaints of shaw to face and left arm. Patient reports she was making her coffee and notice of the coffee machine was not dripping so she leaned over the top of it and the removed to the lid and steam and coffee/her face. She did flush her eyes prior to arrival. She is complaining of shaw to the left side of the face, the left arm and around the eyes with eye irritation. No vision changes. Related Data Previous Rx's Medication Instructions Recorded thiamine HCl (vitamin B1) 100 mg 100 mg PO DAILY 30 days #30 tabs 08/28/20 tablet cholecalciferol (vitamin D3) 125 125 mcg PO DAILY 90 days #90 caps 02/11/22 mcg (5,000 unit) capsule levothyroxine 100 mcg tablet 100 mcg PO DAILY 90 days #90 tabs 07/18/22 acetaminophen 325 mg tablet 650 mg (2 x 325 mg) PO Q4H PRN 05/27/23 (Tylenol) pain #30 tabs oxycodone 5 mg tablet 5 mg PO Q8H PRN pain #5 tabs 05/27/23 Allergies Allergy/AdvReac Type Severity Reaction Status Date / Time No Known Allergies Allergy Verified 09/26/22 13:07 [No Known Allergies*] Review of Systems Review of Systems: Yes all other systems are reviewed and are negative Constitutional: Constitutional: Reports no additional constitutional complaints, Denies body ache(s), Denies chills, Denies fever(s), Denies headache(s) and Denies weakness Eyes: Eyes: Reports no additional eye complaints and Denies change in vision ENT: Reports system reviewed and no additional complaints, except as documented, Denies dizziness, Denies headache(s), Denies nasal congestion, Denies nasal discharge and Denies neck pain Cardiovascular: Cardiovascular: Reports no additional cardiovascular complaints, Denies chest pain, Denies leg edema and Denies dyspnea Respiratory: Respiratory: Reports no additional respiratory complaints, Denies cough and Denies dyspnea Gastrointestinal: Gastrointestinal: Reports no additional gastrointestinal complaints, Denies abdominal pain, Denies diarrhea, Denies nausea and Denies vomiting Genitourinary: Genitourinary: Reports no additional female genitourinary complaints and Denies urinary incontinence Musculoskeletal: Musculoskeletal: Reports no additional musculoskeletal complaints, Denies back pain, Denies arthralgias, Denies joint swelling, Denies neck pain, Denies numbness and Denies tingling Integumentary/Breasts: Skin/Breast: Reports system reviewed and no additional complaints, except as docu and Denies rash Neurologic: Reports system reviewed and no additional complaints, except as documented, Denies Abnormal speech present, Denies dizziness, Denies headache(s), Denies numbness, Denies tingling and Denies weakness PMF Past Medical History Attestation statement: The following information was validated with the patient. Source: old records reviewed and nursing notes reviewed Medical History Reactive hypoglycemia Irregular menses Post menopausal syndrome Vitamin D deficiency Hypothyroidism Anxiety Hypothyroidism Obesity (BMI 30-39.9) Intestinal malabsorption following gastrectomy Surgical History S/P laparoscopic sleeve gastrectomy Hx of vaginal surgery Status post arthroscopy of left knee Hx of cholecystectomy Family History Family History Father Heart disease CVD (cardiovascular disease) Mother No problems noted. Brother Diabetes mellitus Brother Depressed Sister Pelvic cancer Thromboangiitis Bipolar 1 disorder Panic attack Heart problem Social History Social History Household Members: None Alcohol intake: current Alcohol intake frequency: holidays/special occasions only Patient Tobacco Use Status: Never used Tobacco Advance Directives: No Advance Directives Information Provided: Yes Current occupation: lft handed Physical Exam Vital Signs: Vital Signs: Last Vital Signs Temp 97.8 F 05/27/23 08:43 Pulse 87 05/27/23 08:43 Resp 16 05/27/23 08:43 BP 128/68 05/27/23 08:43 Pulse Ox 100 05/27/23 08:43 O2 Del Method Room Air 05/27/23 08:43 BMI result Body Mass Index 38.0 Const: General: cooperative, healthy appearing, comfortable and no acute distress Orientation/consciousness: patient oriented x3 Limitations: no limitations HEENT: Other: To the left cheek there are partial thickness shaw. There is periorbital erythema and conjunctival injection. Head: Yes normal to inspection Ears: hearing grossly normal bilaterally General nose exam: Normal external nose present Face and sinus: Yes normal facial exam Mouth: Normal oral and palatal mucosa present Throat: Yes posterior oropharynx normal Eyes: General: appearance normal, both eyes and all related structures Visual Askew: normal visual askew by confrontation Alignment and Position: alignment normal Pupils: Equal, round and reactive pupils present EOM: EOMs intact bilaterally Direct Ophthalmoscopy: normal light reflex Neck: Neck: Yes normal visual inspection Chest: Chest palpation & inspection: normal inspection of the chest Resp: Effort & Inspection: normal respiratory effort Auscultation: clear to auscultation bilaterally Cardio: Rate: regular rate Rhythm: regular rhythm Peripheral pulses: Peripheral pulses 2+ throughout GI: Inspection: Yes normal to inspection Palpation (GI): Soft to palpation and nontender Auscultation: normal bowel sounds Back/Spine/Pelvis: Thoracic/Lumbar Spine: thoracic and lumbar spine normal to inspection Skin: General skin exam: no rashes or lesions noted Neuro: General: patient oriented x3, no focal motor deficits and normal sensation to monofilament Cranial nerves: Yes Equal, round and reactive pupils present Cognition (Neuro): normal cognition Speech: No Abnormal speech present Gait exam (Neuro): Normal gait present Motor exam (neuro): 5/5 motor strength present throughout Extrem: Other: To the left upper extremity there are several small areas of partial-thickness shaw to the biceps and forearm General: Yes normal to inspection Course Course Course Narrative: Patient reports improvement in symptoms after her eyes were flashed and some topical tetracaine. She also received analgesia with improvement of symptoms. I will send her home with some pain medication and recommendations for supportive care. Reviewed worrisome signs and symptoms of when to return to the emergency room. Comfortable plan for discharge home Medications Administered Discontinued Medications Generic Name Dose Route Start Last Admin Trade Name Maxi PRN Reason Stop Dose Admin Ketorolac Tromethamine 30 mg 05/27/23 09:00 05/27/23 09:32 Ketorolac Tromethamine 30 Mg/Ml Vial IM 05/27/23 09:01 30 mg ONCE ONE Administration Tetracaine HCl 1 drop 05/27/23 09:00 05/27/23 09:32 Tetracaine Hcl/Pf 0.5% Oph Radha 4 Ml Drops EYE-BOTH 05/27/23 09:01 1 drop ONCE ONE Administration Medical Decision Making Medical Decision Making [facility] Narrative: 53-year-old female here with complaints of shaw to face and left arm.? Patient reports she was making her coffee and notice of the coffee machine was not dripping so she leaned over the top of it and the removed to the lid and steam and coffee/her face.? She did flush her eyes prior to arrival.? She is complaining of shaw to the left side of the face, the left arm and around the eyes with eye irritation.? No vision changes. To the left cheek there are partial thickness shaw.? There is periorbital erythema and conjunctival injection To the left upper extremity there are several small areas of partial-thickness shaw to the biceps and forearm. Eye exam is normal. Oropharynx is normal. Lungs are clear. Vitals are stable. Will provide tetracaine and eye flushing. Will provide analgesia. Differential Diagnosis Differential Diagnoses: The differential diagnosis associated with the presentation includes Partial thickness, superficial shaw Prescription Management I considered prescription management with: Antibiotic Discharge Plan Discharge Clinical Impression: Superficial partial thickness burn of face Patient Disposition: Home, Self-Care Instructions: Superficial Burn (ED), Second Degree Burn (ED) Additional Instructions: Cool compresses Topical bacitracin or neosporin Prescriptions: New oxycodone 5 mg tablet 5 mg PO Q8H PRN (Reason: pain) Qty: 5 0RF Rx Instructions: Partial Fill upon patient request. acetaminophen [Tylenol] 325 mg tablet 650 mg PO Q4H PRN (Reason: pain) Qty: 30 0RF No Action thiamine HCl (vitamin B1) 100 mg tablet 100 mg PO DAILY 30 Days Qty: 30 5RF cholecalciferol (vitamin D3) 125 mcg (5,000 unit) capsule 125 mcg PO DAILY 90 Days Qty: 90 11RF levothyroxine 100 mcg tablet 100 mcg PO DAILY 90 Days Qty: 90 11RF Referrals: Saadia Mansfield MD [Primary Care Provider] - 10 days
[2023-05-27] MEDS: Ketorolac Tromethamine 30 MG/ML VIAL IM (09:32)
[2023-05-27] MEDS: Tetracaine HCl/PF 0.5% Oph Sol 4 ML DROPS 1 DROP EYE-BOTH (09:32)
--- NOTE | 2023-05-27 10:11 | PC.NURSE ---
pt jesús to eye wash station for removal of debris. cold compresses for comfort.
== END 2023-05-27 10:22 | disposition home or self-care (01) ==
PROVIDERS: Emergency Provider Student in an Organized Health Care Education/Training Program; PCP Family Medicine
DX: T20.26XA Burn of second degree of forehead and cheek, initial encounter (principal); T22.212A Burn of second degree of left forearm, initial encounter; T22.232A Burn of second degree of left upper arm, initial encounter; X10.0XXA Contact with hot drinks, initial encounter; Y93.G9 Activity, other involving cooking and grilling; Y92.030 Kitchen in apartment as the place of occurrence of the external cause; Y99.9 Unspecified external cause status
CPT/HCPCS: 96372; 99283; 99284; J1885

== ENCOUNTER 2023-06-19 15:09 | Outpatient (REF) | payer OTHER, MEDICAID, SELFPAY ==
--- NOTE | ~2023-06-19 | MR_ITS ---
EXAMINATION: MRI ABDOMEN WITH AND WITHOUT CONTRAST CLINICAL INFORMATION: Liver lesion see on imaging COMPARISON: 11/[address] scan and 12/19/2022 ultrasound TECHNIQUE: Multiple routine MRI sequences through the abdomen were obtained on a high-field 1.5Tesla MRI. Pre-and postcontrast images with 10 mL of Gadavist intravenous contrast were obtained. This included a dynamic contrast-enhanced technique. FINDINGS: Lung bases: The visualized lung bases are unremarkable. Liver: The liver is normal in size, shape, and signal. Along the posterior segment 7 of the liver there is a subcapsular well demarcated homogeneously T2 bright 1 cm peripheral nodular enhancing hemangioma corresponding with the abnormality seen on recent CT scan. No suspicious focal hepatic lesions seen. Specifically no suspicious arterial phase enhancing lesions or suspicious washout of contrast on later phases. No biliary ductal dilatation. Gallbladder: Surgically absent Pancreas: Pancreas is homogeneous in signal. No pancreatic ductal dilatation or obstruction. No peripancreatic inflammatory changes or fluid. Spleen: Unremarkable Adrenals: Unremarkable Kidneys: Kidneys are normal in size, shape, and signal. No suspicious renal mass lesion seen. No hydronephrosis or perinephric edema. Other: Postoperative changes from prior gastric sleeve surgery noted. MR/MR abdomen wo/w con IMPRESSION: 1 cm subcapsular hemangioma in the posterior segment 7 of the liver corresponding with the abnormality seen on recent CT scan. No suspicious hepatic lesions seen.
[2023-06-19] MEDS: gadobutroL 10 ML VIAL IVPUSH (16:07)
== END 2023-06-19 15:10 | disposition home or self-care (01) ==
LOC: HO.MRI 15:09
PROVIDERS: PCP Family Medicine; Visit Provider Family Medicine
DX: K76.89 Other specified diseases of liver (principal)
CPT/HCPCS: 74183; A9585

== ENCOUNTER 2023-07-19 10:26 | Outpatient (REF) | payer OTHER, MEDICAID, SELFPAY ==
--- NOTE | ~2023-07-19 | XR_ITS ---
EXAMINATION: XR FOOT, LEFT CLINICAL INFORMATION: Pain. COMPARISON: None available. TECHNIQUE: AP, lateral, and oblique views of the left foot. FINDINGS: Bony alignment and mineralization are normal. No fracture, dislocation or left ankle joint effusion is seen. Boehler's angle is normal. There are small posterior and large plantar calcaneal spurs. No abnormal bony erosive change is seen. No focal soft tissue swelling, gas or foreign body is seen. XR/XR foot LT 2V IMPRESSION: 1. No fracture, dislocation or left ankle joint effusion is seen. 2. There are calcaneal spurs.
== END 2023-07-19 10:27 | disposition home or self-care (01) ==
LOC: HO.HOSX 10:26
PROVIDERS: PCP Family Medicine; Visit Provider Physical Medicine & Rehabilitation
DX: M79.672 Pain in left foot (principal); M76.72 Peroneal tendinitis, left leg
CPT/HCPCS: 73620

== ENCOUNTER 2023-07-19 10:26 | Outpatient (AMB) | payer OTHER, MEDICAID, SELFPAY ==
[2023-07-19 10:35] VITALS: BMI 34.7
--- NOTE | 2023-07-19 10:35 | A.OFFVIS_ITS ---
Intake Vital Signs 07/19/23 10:35 Height 5 ft 3 in Weight 196 lb BMI 34.7 Intake Visit Reasons: New Prob- Left foot pain Intake Note: Parlu 53 yr old female presents today for her new problem visit for her left foot pain. States pain is mainly on her lateral aspect of foot. States she tripped and twisted her foot about 4 months ago. Denies numbness or tingling inn foot or toes. States her increase when walking. Allergies No Known Allergies [No Known Allergies*] Allergy (Verified 07/19/23 10:39) Medication List - Last Reconciled 07/19/23 by Kanchan Nunez MD acetaminophen (Tylenol) 650 mg (2 x 325 mg) PO Q4H PRN cholecalciferol (vitamin D3) 125 mcg PO DAILY 90 days estradiol (Lyllana) 1 patch topical 2XW levothyroxine 100 mcg PO DAILY 90 days omeprazole 20 mg PO DAILY thiamine HCl (vitamin B1) 100 mg PO DAILY 30 days HPI HPI Comments History of Present Illness Details Points to left lateral foot. 4 months only. Twisted and fell on her foot. It swelled on left lateral ankle. No PT. No brace. No numbness or burning. No foot drop. Full ROM. Congenital below elbow amputation. [facility] Medical History Reactive hypoglycemia Irregular menses Post menopausal syndrome Vitamin D deficiency Hypothyroidism Anxiety Hypothyroidism Obesity (BMI 30-39.9) Intestinal malabsorption following gastrectomy Surgical History S/P laparoscopic sleeve gastrectomy Hx of vaginal surgery Status post arthroscopy of left knee Hx of cholecystectomy Family History Father Heart disease CVD (cardiovascular disease) Mother No problems noted. Brother Diabetes mellitus Brother Depressed Sister Pelvic cancer Thromboangiitis Bipolar 1 disorder Panic attack Heart problem Social History (Updated 07/19/23 @ 10:40 by ILIANA Elena) Household Members: None Alcohol intake: current Alcohol intake frequency: holidays/special occasions only Patient Tobacco Use Status: Never used Tobacco Current occupational status: employed Current occupation: lft handed/ direct care/mental health Review of Systems Const All systems reviewed & are unremarkable except as noted in HPI and below Physical Exam Vital Signs: BMI result Body Mass Index 34.7 Constitutional: Patient appears to be in no acute distress, well nourished and well developed. MSK: Tender left lateral foot - base of left 5th metatarsal. without signs of inflammatin, no redness, swelling or warmth. No tenderness over malleoli, plantar fascia or achilles. No foot drop. No EHL weakness. Neurological: Neurologic examination of the upper and lower extremities was nonfocal with intact sensation, muscle stretch reflexes and without focal motor deficits . Vargas?s negative bilaterally. Babinski was down going bilaterally. Clonus was negative. Gait is non-antalgic without loss of balance. Results Reviewed Results Reviewed: I independently reviewed the results of the following: See below I reviewed records from the following: Ortho Pain management Assessment & Plan Assessment & Plan (1) Foot pain, left: Code(s): M79.672 - Pain in left foot (2) Peroneal tendinitis, left leg: Code(s): M76.72 - Peroneal tendinitis, left leg Plan She rolled over left foot 4 months ago. Continues to have pain but tenderness is only around base of left metatarsal. No pain on malleoli or surrounding soft tissues. Will send for xray today. Most likely will put on a boot and refer to PT. We reviewed xray together. No fracture seen. Calcification on peroneal tendon as it attaches to 5th metatarsal, most likely sesamoid bone, most likely incidental. Will still put on boot for comfort. Referring to PT. Assessment and plan discussed with patient, and patient was agreeable. All questions were answered thoroughly. Follow-up 4-6 weeks. Kanchan Nunez MD, MARGY Board Certified, [place] Board [employer] and Rehabilitation (ABPMR) Board Certified, [place] Board of Electrodiagnostic Medicine (ABEM) Orders: Orders XR foot LT 2V Today M79.672 - Pain in left foot Coding Level of Care Code New Pt Level 4 (19790) Diagnoses Foot pain, left M79.672 Peroneal tendinitis, left leg M76.72
== END 2023-07-19 11:38 | disposition home or self-care (01) ==
PROVIDERS: PCP Family Medicine; Visit Provider Physical Medicine & Rehabilitation
DX: M79.672 Pain in left foot (principal); M76.72 Peroneal tendinitis, left leg
CPT/HCPCS: 99204

== ENCOUNTER 2023-08-02 09:36 | Outpatient (REF) | payer OTHER, MEDICAID, SELFPAY ==
--- NOTE | ~2023-08-02 | CT_ITS ---
EXAMINATION: CT CHEST WITH CONTRAST CLINICAL INFORMATION: Follow-up right basilar lung nodules. COMPARISON: CT abdomen and pelvis dated 11/30/2022. TECHNIQUE: Multidetector volumetric CT imaging of the chest was obtained after the administration of 50 mL of Omnipaque 350 intravenous contrast without immediate adverse reactions. Axial MIP volume rendering provided. Sagittal and coronal reformatted images were obtained. This CT examination was performed using dose optimization techniques as appropriate, variously including the following: *Automated exposure control *Adjustment of mA and/or kV according to patient size (this includes techniques or standardized protocols for targeted exams where dose is matched to indication/reason for exam; i.e. extremities or head) *Use of iterative reconstruction technique DLP: 149 mGy-cm FINDINGS: PLASTIC PARTS DESIGNER: The lungs are symmetrically well-expanded and grossly clear. LUNGS: Abutting the accessory fissure (7:76 and 6:87), a 4 mm benign pleural-based lymph node is seen. Within the lateral segment of the right middle lobe anteriorly (7:88), a 4 mm mildly spiculated nodule is seen. Abutting the right major fissure laterally (7:87), a 3 mm benign pleural-based lymph node is seen. Within the lateral basal segment of the right lower lobe (7:99), a 6 mm ovoid noncalcified nodule is seen. Within the posterior basal segment of the right lower lobe (7:15 and 122), 3 mm noncalcified parenchymal and benign pleural-based nodules are seen. At the lateral left apex (7:23), a 4 mm noncalcified subpleural nodule is seen. There are a few further tiny 1 mm calcified and noncalcified left upper lobe nodules, best appreciated on the MIP sequence. There are several benign pleural-based lymph nodes applied to the left major fissure, the largest inferiorly towards the lingula measuring 4 (7:112). There are numerous parenchymal and pleural-based nodules seen within the lateral basal segment of the left lower lobe, the largest parenchymal nodule measuring 5 mm (7:123). There is no mass, infiltrate or groundglass opacity. No generalized increase is seen in peripheral interlobular septal markings. No significant bleb or bullous formation is seen. There is no generalized small airway thickening. The central airways appear patent. MEDIASTINUM: The thyroid is unremarkable. There are numerous mediastinal lymph nodes, among the largest a right paratracheal lymph node with short axis diameter 1.4 cm, para-aortic lymph nodes with short axis diameters of 1.0 cm and 1.2 cm, a precarinal lymph node with short axis diameter of 8 mm, and a subcarinal lymph node with short axis diameter of 1.2 cm (3:14, 17, 18 and 20). There are are enlarged right hilar lymph nodes, the largest measuring 1.0 cm and 0.9 cm (3:20). There are enlarged left hilar lymph nodes, the largest showing a short axis diameter of 1.3 cm (3:25). PLEURA: There is no pleural effusion. No pleural mass or thickening. AXILLA: No lymphadenopathy. UPPER ABDOMEN: There is hepatic steatosis. The adrenal glands are unremarkable. Gastroesophageal surgical kyleigh are noted. OSSEOUS STRUCTURES: There is multi-level thoracic spondylosis. No acute or aggressive osseous finding is noted. CT/CT chest w IV con IMPRESSION: 1. Multiple bilateral calcified and noncalcified pulmonary nodules are seen, the largest within the lateral right base measuring 6 mm. According to the UPDATED 2017 Fleischner Society recommendations, the advised follow-up imaging for multiple solid nodules, the largest measuring 6 mm or greater, is: LOW RISK PATIENT: CT at 3-6 months, then consider CT at 18-24 months. HIGH RISK PATIENT: CT at 3-6 months, then at 18-24 months. 2. No mass, infiltrate or groundglass opacity is seen. 3. There are nonspecific enlarged mediastinal and bilateral hilar lymph nodes, for which continued attention on imaging follow-up is recommended. 4. There is no pleural effusion. 5. There are degenerative changes of the thoracic spine. No acute or aggressive osseous finding is noted. 6. There are degenerative changes of the thoracic spine. 7. There is hepatic steatosis. Fleischner guidelines were followed.
== END 2023-08-02 09:37 | disposition home or self-care (01) ==
LOC: HO.CT 09:36
PROVIDERS: PCP Family Medicine; Visit Provider Family Medicine
DX: R91.1 Solitary pulmonary nodule (principal)
CPT/HCPCS: 71260; 82565; Q9967

== ENCOUNTER → 2023-09-05 09:22 | Outpatient (REF) | payer OTHER, MEDICAID, SELFPAY ==
--- NOTE | 2023-09-05 | ECG_ITS ---
Test Reason : pre op Blood Pressure : / mmHG Vent. Rate : 060 BPM Atrial Rate : 060 BPM P-R Int : 184 ms QRS Dur : 108 ms QT Int : 410 ms P-R-T Axes : 037 -10 038 degrees QTc Int : 410 ms Normal sinus rhythm Incomplete right bundle branch block Borderline ECG No significant changes when compared with the previous EKG of 01 jul 2019 Referred By: Saadia Mansfield Electronically Signed By:BETTY GOODE
== END ==
LOC: HO.CARD 09:22
PROVIDERS: PCP Family Medicine; Visit Provider Family Medicine
DX: Z01.818 Encounter for other preprocedural examination (principal)
CPT/HCPCS: 93005

== ENCOUNTER → 2023-09-05 09:39 | Outpatient (BNV) | payer OTHER, MEDICAID, SELFPAY | PROVIDERS: PCP Family Medicine; Visit Provider Internal Medicine | DX: Z01.810 Encounter for preprocedural cardiovascular examination (principal) | CPT/HCPCS: 93010 ==

== ENCOUNTER 2024-03-06 06:25 | Outpatient (REF) | payer BC, MEDICAID, SELFPAY ==
[2024-03-06 06:37] LABS: MANUAL DIFF FLAG NO
[2024-03-06 07:12] LABS: Basophils Absolute Auto 0.1 X10*3/uL (0.0-0.2); Basophils Percent Auto 1.3 % (0-2); Eosinophils Absolute Auto 0.2 X10*3/uL (0.0-0.4); Eosinophils Percent Auto 4.4 % (0-4); Hematocrit 42.3 % (37.0-47.0); Hemoglobin 14.2 g/dl (12.0-16.0); Imm Gran Abs Auto 0.01 X10*3/uL (0.00-0.03); Imm Gran Pct Auto 0.3 % (0.0-0.4); Lymphocytes Percent Auto 26.6 % (20-40); Mean Corpuscular HGB Conc 33.6 g/dl (31.0-35.0); Mean Corpuscular Hemoglobin 31.1 pg (27.0-33.0); Mean Corpuscular Volume 92.6 fL (80.0-98.0); Mean Platelet Volume 12.3 fL (9.4-12.3); Monocytes Absolute Auto 0.3 X10*3/uL (0.1-1.2); Monocytes Percent Auto 8.4 % (2-11); Neutrophils Absolute Auto 2.3 x10*3/uL (2.0-8.3); Platelet Count 261 X10*3/uL (160-400); Red Blood Count 4.57 X10*6/uL (4.20-5.50); Red Cell Distribution Width 13.8 % (11.0-16.0); White Blood Count 3.8 X10*3/uL (4.8-10.8)
[2024-03-06 07:45] LABS: Alanine Aminotransferase 11 U/L (0-31); Albumin Level 3.7 g/dL (3.5-5.0); Alkaline Phosphatase 70 U/L (39-117); Anion Gap 9 (12-20); Aspartate Amino Transferase 18 U/L (5-31); Bilirubin Total 0.6 mg/dL (0.0-1.0); Blood Urea Nitrogen 16 mg/dL (9-16); Calcium 9.7 mg/dL (8.4-10.2); Carbon Dioxide 27 mmol/L (22-29); Chloride 110 mmol/L (96-108); Cholesterol 167 mg/dL (<200); Estimated Glomerular Filt Rate > 60; Glucose Random 86 mg/dL (60-115); HDL Cholesterol 52 mg/dL (>40); Iron 105 mcg/dL (30-160); LDL Cholesterol Calculated 93 mg/dL (<100); Percent Iron Saturation 50 % (15-50); Potassium 3.6 mmol/L (3.3-5.1); Sodium 142 mmol/L (135-145); Total Iron Binding Capacity 211 mcg/dL (228-428); Total Protein 6.5 g/dL (6.5-8.0); Triglycerides 114 mg/dL (<150); Unsaturated Iron Binding 106 ug/dL
[2024-03-06 08:01] LABS: HIV AB/AG Nonreactive (Nonreactive); HIV Num 1 0.06 S/CO (0.00-0.99); ~HepC Num1 0.43 S/CO (0.00-0.79); ~Hepatitis C Antibody Nonreactive (Nonreactive)
[2024-03-06 08:02] LABS: Ferritin 42 ng/mL (10-250)
== END 2024-03-06 06:26 | disposition home or self-care (01) ==
LOC: HO.LAB 06:25
PROVIDERS: PCP Family Medicine; Visit Provider Family Medicine
DX: E03.9 Hypothyroidism, unspecified (principal); E66.09 Other obesity due to excess calories; R79.89 Other specified abnormal findings of blood chemistry; Z13.9 Encounter for screening, unspecified; Z68.35 Body mass index [BMI] 35.0-35.9, adult
CPT/HCPCS: 36415; 80053; 80061; 82728; 83540; 84443; 85025; 86803; 87389

== ENCOUNTER → 2024-04-02 07:27 | Outpatient (REF) | payer BC, MEDICAID, SELFPAY ==
--- NOTE | 2024-04-02 07:33 | ECG_ITS ---
Test Reason : pre op Blood Pressure : / mmHG Vent. Rate : 072 BPM Atrial Rate : 072 BPM P-R Int : 162 ms QRS Dur : 096 ms QT Int : 392 ms P-R-T Axes : 064 -13 055 degrees QTc Int : 429 ms Normal sinus rhythm Incomplete right bundle branch block Borderline ECG When compared with ECG of 05-SEP-2023 09:39, No significant change was found Referred By: Saadia Mansfield Electronically Signed By:MIRELA SERRA
== END ==
LOC: HO.CARD 07:27
PROVIDERS: PCP Family Medicine; Visit Provider Family Medicine
DX: Z01.818 Encounter for other preprocedural examination (principal)
CPT/HCPCS: 93005

== ENCOUNTER 2024-04-12 10:18 | Outpatient (REF) | payer BC, MEDICAID, SELFPAY ==
[2024-04-12 10:32] LABS: MANUAL DIFF FLAG NO
[2024-04-12 11:09] LABS: Alanine Aminotransferase 10 U/L (0-31); Albumin Level 3.5 g/dL (3.5-5.0); Alkaline Phosphatase 61 U/L (39-117); Anion Gap 8 (12-20); Aspartate Amino Transferase 17 U/L (5-31); Bilirubin Total 0.4 mg/dL (0.0-1.0); Blood Urea Nitrogen 16 mg/dL (9-16); Calcium 9.2 mg/dL (8.4-10.2); Carbon Dioxide 30 mmol/L (22-29); Chloride 111 mmol/L (96-108); Estimated Glomerular Filt Rate > 60; Glucose Random 90 mg/dL (60-115); Sodium 145 mmol/L (135-145)
[2024-04-12 11:22] LABS: Basophils Absolute Auto 0.1 X10*3/uL (0.0-0.2); Basophils Percent Auto 1.2 % (0-2); Eosinophils Absolute Auto 0.2 X10*3/uL (0.0-0.4); Eosinophils Percent Auto 3.9 % (0-4); Hematocrit 40.5 % (37.0-47.0); Hemoglobin 13.2 g/dl (12.0-16.0); Imm Gran Abs Auto 0.01 X10*3/uL (0.00-0.03); Imm Gran Pct Auto 0.2 % (0.0-0.4); Lymphocytes Absolute Auto 1.2 X10*3/uL (1.2-4.9); Lymphocytes Percent Auto 27.9 % (20-40); Mean Corpuscular HGB Conc 32.6 g/dl (31.0-35.0); Mean Corpuscular Hemoglobin 31.2 pg (27.0-33.0); Mean Corpuscular Volume 95.7 fL (80.0-98.0); Mean Platelet Volume 12.4 fL (9.4-12.3); Monocytes Absolute Auto 0.3 X10*3/uL (0.1-1.2); Monocytes Percent Auto 7.8 % (2-11); Neutrophils Absolute Auto 2.6 x10*3/uL (2.0-8.3); Platelet Count 246 X10*3/uL (160-400); Red Blood Count 4.23 X10*6/uL (4.20-5.50); Red Cell Distribution Width 14.2 % (11.0-16.0); White Blood Count 4.3 X10*3/uL (4.8-10.8)
== END 2024-04-12 10:19 | disposition home or self-care (01) ==
LOC: HO.LAB 10:18
PROVIDERS: PCP Student in an Organized Health Care Education/Training Program; Visit Provider Student in an Organized Health Care Education/Training Program
DX: Z01.810 Encounter for preprocedural cardiovascular examination (principal)
CPT/HCPCS: 36415; 80053; 85025

== ENCOUNTER 2024-07-26 10:11 | Outpatient (REF) | payer BC, MEDICAID, SELFPAY ==
--- NOTE | ~2024-07-26 | CT_ITS ---
EXAMINATION: CT CHEST WITHOUT CONTRAST CLINICAL INFORMATION: Pulmonary nodule. COMPARISON: CT chest dated 08/02/2023. TECHNIQUE: Multidetector volumetric CT imaging of the chest was done. Axial MIP volume rendering provided. Sagittal and coronal reformatted images were obtained. This CT examination was performed using dose optimization techniques as appropriate, variously including the following: *Automated exposure control *Adjustment of mA and/or kV according to patient size (this includes techniques or standardized protocols for targeted exams where dose is matched to indication/reason for exam; i.e. extremities or head) *Use of iterative reconstruction technique DLP: 123 mGy-cm FINDINGS: CYCLE CONSULTANT: Unremarkable. LUNGS: Stable subpleural nodule within the left upper lobe measuring up to 0.4 cm, unchanged (axial image 119/547). Lateral left lower lobe pulmonary nodule measuring 0.5 cm, unchanged (axial image 391/547). Stable posterior right lobe pulmonary nodule measuring 0.3 cm, unchanged. Lateral right lower lobe pulmonary nodule measuring up to 0.6 cm, unchanged (axial image 284/547). There are multiple additional tiny bilateral pulmonary nodules, unchanged. Findings are stable when compared to the CT dated 08/02/2023. No large pulmonary mass or confluent airspace consolidation. The central airways are patent. MEDIASTINUM: No cardiomegaly. No pericardial effusion. No thoracic aortic dilatation. No superior mediastinal or hilar lymphadenopathy. Previously seen superior mediastinal and hilar lymphadenopathy appears to have resolved. Evaluation somewhat limited without contrast. Atrophic thyroid. CORONARY ARTERY CALCIFICATION: None visualized on this study. PLEURA: There is no pleural effusion. No pleural mass or thickening. AXILLA: No lymphadenopathy. UPPER ABDOMEN: Status post sleeve gastrectomy. Status post cholecystectomy. OSSEOUS STRUCTURES: Unremarkable. CT/CT chest wo IV con IMPRESSION: 1. Multiple small bilateral pulmonary nodules, unchanged when compared to the CT dated 08/02/2023. The largest nodule measures up to 0.6 cm. According to the UPDATED 2017 Fleischner Society recommendations, the advised follow-up imaging for nodules <6mm in the upper lobes which have been stable for 12 months is; no further follow-up is recommended. 2. No large pulmonary mass or confluent airspace consolidation. 3. No lymphadenopathy. Previously seen lymphadenopathy not identified on the current examination. Fleischner guidelines were followed. Electronically signed by: Bradly Lipscomb MD 07/26/2024 12:24 PM FERNANDO
== END 2024-07-26 10:12 | disposition home or self-care (01) ==
LOC: HO.CT 10:11
PROVIDERS: PCP Student in an Organized Health Care Education/Training Program; Visit Provider Family Medicine
DX: R91.1 Solitary pulmonary nodule (principal)
CPT/HCPCS: 71250

== ENCOUNTER 2025-02-13 14:08 | Outpatient (REF) | payer BC, SELFPAY ==
--- OUTSIDE RECORDS SUMMARY | 2025-02-13 14:57 | XMS_ITS | Encounter Summary ---
Author Organization [employer] Address [address] [place] [address] Care Team Providers Care Road Train Driver Name Role Phone Saadia Mansfield MD Primary Care Provider [phone] Reason for Visit * Reason Onset Date Comments fyi 10/07/2022 Encounter Details Date Type Department Care Team ([facility] st Contact Info) Description 10/07/2022 Telephone [facility] [address] [place] [address] Saadia Mansfield MD [address] [place] [address] fyi Social History Tobacco Use Types Packs/Day Years Used Date Smoking Tobacco: Never Assessed Comments Unknown Sex and Gender Information Value Date Recorded Sex Assigned at Female 05/30/2022 10:37 AM EDT Legal Sex Female 10:37 AM EDT Gender Identity Female 05/30/2022 10:37 AM EDT Sexual Orientation Straight 05/30/2022 10 :37 AM EDT COVID-19 Exposure Response Date Recorded In the last 10 days, have yo u been in contact with someone who was confirmed or suspected to have Coronavirus/COVID-19? 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 Any providedmw with the correct location [facility] with the phone number and fax. documented in this encounter Plan of Treatment Not on file documented as of this encounter Visit Diagnoses Not on filedocumented in this encounter Care Teams Road Train Driver Relationship Specialty Start Date End Date Saadia Mansfield MD [address] [place] [address] PCP - General Family Medicine 06/04/21 documented as of this encounter
--- OUTSIDE RECORDS SUMMARY | 2025-02-13 14:57 | XMS_ITS | Clinical Summary ---
Author Organization [facility] Address [address] [place] [address] Phone Care Team Providers Care Transmission Maintenance Supervisor Name Role Phone Saadia Mansfield MD Primary Care Provider [phone] Allergies No known active allergies Medications DAILY MULTI-VITAMIN ORAL Take 1 tablet by mouth 1 (one) time each day. 7 Active levothyroxine (SYNTHROID, LEVOTHROID) 100 mcg tablet Take 1 tablet (100 mcg total) by mouth 1 (one) time each day before breakfast. 7 Active nystatin (MYCOSTATIN) 100,000 unit/gram powder Apply 10,000 g topically if needed. Active omeprazole (PriLOSEC) [address] capsule Take 1 capsule (20 mg total) by mouth 1 (one) time each day if needed. 4 Active progesterone (PROMETRIUM) 200 mg capsule Take 1 capsule (200 mg total) by mouth 1 (one) time each day. 4 Active triamcinolone (KENALOG) 0.1 % lotion Apply topically 3 (three) times a day if needed. 3 Active estradioL (CLIMARA) 0.05 mg/[address] 1 patch on the skin 2 (two) times a week. Active Active Problems No known active problems Surgical History Surgery Date Site/Laterality Comments SLEEVE GASTROPLASTY 07/31/2019 - 07/30/2020 BARIATRIC SURGERY 07/31/2022 - 07/30/2023 RE-SLEEVE GASTROPLASTY COSMETIC SURGERY 07/31/2023 - 07/30/2024 Bilateral BRACHIPLASTY CHOLECYSTECTOMY Medical History Medical History Date Comments Hypothyroidism GERD (gastroesophageal reflux disease) Social History Tobacco Use Types Packs/Day Years Used Date Smoking Tobacco: Never Smokeless Tobacco: Never Tobacco Cessation:Counseling Given: Not Answered Alcohol Use Standard Drinks/Week Comments Not Currently 0 (1 standard drink = 0.6 oz pur e alcohol) Interpersonal Safety Answer Date Record ed Physical Abuse 08/20/2024 Verbal Abuse 08/20/2024 Comments No Sex and Gender Information Value Date Recorded Sex Assigned at Female 08/19/2024 11:07 AM EST Legal Sex Female 2:17 AM EST Gender Identity Female 08/19/2024 11:07 AM EST Sexual Orientation Straight 08/20/2024 10 :41 AM EST Obstetrics History Last Filed Vital Signs Vital Sign Reading Time Taken Comments Blood Pressure 156/76 08/20/2024 4:35 PM EST Pulse 77 08/20/2024 4:35 PM EST Temperature 36.3 C (97.3 F) 08/20/2024 4:35 PM EST Respiratory Rate 16 08/20/2024 4:35 PM EST Oxygen Saturation 100% 08/20/2024 4:35 PM EST Inhaled Oxygen Concentration - - Weight 66.7 kg (147 lb) 08/20/2024 11:00 AM EST Height 160 cm (5' 2.99 ) 08/20/2024 11:00 AM EST Body Mass Index 26.05 08/20/2024 11:00 AM EST Plan of Treatment Health Maintenance Due Date Last Done Comments Breast Cancer Screening 1970 Hepatitis A Vaccines (1 of 2 - Risk 2-dose series) 01/23/1991 Hepatitis B Vaccines (1 of 3 - 19+ 3-dose series) 01/23/1991 10/27/2022, 03/10/2022, 02/03/2022 Cervical Cancer Screening: Pap Smear 01/23/1993 Pneumococcal Vaccine: 50+ Years (1 of 1 - PCV) 01/23/2022 Zoster Vaccines (1 of 2) 01/23/2022 Colorectal Cancer Screening: Colonoscopy 07/03/2022 Social Influencers of Health Screening 07/03/2022 COVID-19 Vaccine (1 - season) 2024 Depression Screening 07/31/2024 Influenza Vaccine (#1) 2025 , 09/22/2022, 06/04/2021, Additional history exists Cholesterol Screening (Lipid Panel) 03/06/2029 03/06/2024 DTaP,Tdap,and Td Vaccines (2 - Td or Tdap) 07/17/2033 07/17/2023 HIV Screening Completed 03/06/2024 Hepatitis C Screening Completed 03/06/2024 HIB Vaccines Aged Out No longer eligi ble based on patient's age to complete this topic HPV Vaccines Aged Out No longer eligi ble based on patient's age to complete this topic IPV Vaccines Aged Out No longer eligi ble based on patient's age to complete this topic MMR Vaccines Aged Out No longer eligi ble based on patient's age to complete this topic Meningococcal ACWY Vaccine Aged Out N o longer eligible based on patient's age to complete this topic Meningococcal B Vaccine Aged Out No l onger eligible based on patient's age to complete this topic RSV Immunization Patients Under 20 months Aged Out No longer eligible based on patient's age to complete this topic Varicella Vaccines Aged Out No longer eligible based on patient's age to complete this topic Insurance MED[place] - [place] [facility] [place] Advance Directives * Full Code - Default (Latest Code Status on File) Date Activated Date Inactivated Comments 08/20/2024 10:58 AM 08/20/2024 7:33 PM This is ord er is used when code status has not been discussed with the patient, or code status is otherwise unknown/unconfirmed To update the patient's code status, place a code status order. Do not modify or discontinue any currently active code status orders. Care Teams Transmission Maintenance Supervisor Relationship Specialty Start Date End Date Saadia Mansfield MD [address] [place] [id number] PCP - General Family Medicine 08/20/24
[2025-02-13 17:33] LABS: MANUAL DIFF FLAG NO
[2025-02-13 17:42] LABS: Hematocrit 38.3 % (37.0-47.0); Hemoglobin 12.6 g/dl (12.0-16.0); Imm Gran Abs Auto 0.01 X10*3/uL (0.00-0.03); Imm Gran Pct Auto 0.2 % (0.0-0.4); Lymphocytes Absolute Auto 1.5 X10*3/uL (1.2-4.9); Mean Corpuscular HGB Conc 32.9 g/dl (31.0-35.0); Mean Corpuscular Hemoglobin 30.7 pg (27.0-33.0); Mean Corpuscular Volume 93.4 fL (80.0-98.0); NRBC Abs Auto 0.000 X10*3/uL (0.0-0.012); NRBC Pct Auto 0.0 /100WBC (0.0-0.2); Platelet Count 266 X10*3/uL (160-400); Red Blood Count 4.10 X10*6/uL (4.20-5.50); White Blood Count 5.6 X10*3/uL (4.8-10.8)
[2025-02-13 17:52] LABS: Alanine Aminotransferase 15 U/L (0-31); Albumin Level 3.6 g/dL (3.5-5.0); Alkaline Phosphatase 57 U/L (39-117); Anion Gap 10 (12-20); Aspartate Amino Transferase 24 U/L (5-31); Blood Urea Nitrogen 20 mg/dL (9-16); Calcium 8.5 mg/dL (8.4-10.2); Carbon Dioxide 26 mmol/L (22-29); Chloride 111 mmol/L (96-108); Estimated Glomerular Filt Rate > 60; Potassium 4.0 mmol/L (3.3-5.1); Sodium 143 mmol/L (135-145); Total Protein 6.0 g/dL (6.5-8.0)
== END 2025-02-13 14:09 | disposition home or self-care (01) ==
LOC: HO.CHCLDS 14:08
PROVIDERS: Visit Provider Pediatrics
DX: Z01.818 Encounter for other preprocedural examination (principal)
CPT/HCPCS: 36415; 80053; 85025